=== PATIENT | female | born 1955 | race Native Hawaiian/Other Pacific Islander ===

== ENCOUNTER 2024-07-25 14:06 | Emergency (ER) | payer BC, MEDICARE, SELFPAY ==
[2024-07-25 14:17] VITALS: BP 145/81; PULSE 83; RESP 18; TEMP 36.9; O2SAT 95; BMI 24.6
--- NOTE | 2024-07-25 14:39 | XR_ITS ---
Examination: CT abdomen and pelvis without contrast. Coronal 3-D reconstructions. Sagittal 2-D reconstructions. Date and time of exam:July 25, 2024 1507 hrs. Indications: Onset right-sided flank pain beginning 3 days ago CTDI: vol (mGy): 6.67 DLP: (mGycm): 330 Technique: Axial images of the abdomen have been obtained, 3 mm slice thickness Intravenous contrast material has not been administered. Low dose protocols were performed. One or more of the following dose reduction techniques were used; automated exposure control, adjustment of the mA and/or KV according to patient size, use of iterative reconstruction technique. Findings: No focal liver or splenic lesions Contracted gallbladder No pancreatic or adrenal mass No renal or ureteral calculi, no hydronephrosis Aortic calcification no aneurysmal dilatation No bowel obstruction No pericecal inflammatory change No diverticulitis No bladder mass or bladder calculi, mild thickening of the urinary bladder wall Absent uterus No pelvic mass Advanced disc narrowing L5-S1 Impression: No renal or ureteral calculi, no hydronephrosis Impression: Mild thickening of the urinary bladder wall, consider cystitis
--- NOTE | 2024-07-25 14:39 | PD.EDRME ---
Rapid Medical Screening Exam RME Arrival date/time: 07/25/24 14:06 68-year-old female presents to the emergency department complaint of right flank pain Chief Complaint: Abdominal Pain Vital signs: Vital Signs Temperature 98.5 F 07/25/24 14:17 Pulse Rate 83 07/25/24 14:17 Respiratory Rate 18 07/25/24 14:17 Blood Pressure 145/81 H 07/25/24 14:17 Pulse Oximetry (%) 95 07/25/24 14:17 Oxygen Delivery Method Room Air 07/25/24 14:17
[2024-07-25] MEDS: CYCLObenzaPRINE 5 MG TABLET 10 MG PO (14:51)
[2024-07-25] MEDS: KETOROLAC INJ 30 MG/ML VIAL IM (14:52)
[2024-07-25 15:12] LABS: Basophils # (Auto) 0.1 Thou/mm3 (0.0-0.2); Basophils % (Auto) 1 % (0-2.5); Eosinophils # (Auto) 0.1 Thou/mm3 (0.0-0.5); Eosinophils % (Auto) 2 % (0-10); Hematocrit 40.1 % (36.0-46.0); Hemoglobin 13.1 g/dL (12.0-16.0); Immature Granulocytes % (Auto) 0 % (0-0); Immature Granulocytes Auto 0.01 Thou/mm3 (0.00-0.00); Lymphocytes # (Auto) 2.4 Thou/mm3 (1.0-4.8); Lymphocytes % (Auto) 36 % (10-50); Mean Corpuscular HGB Conc 32.7 g/dl (31.0-37.0); Mean Corpuscular Hemoglobin 29.6 pg (25.0-35.0); Mean Corpuscular Volume 91 fL (80-100); Monocytes # (Auto) 0.6 Thou/mm3 (0.0-0.8); Monocytes % (Auto) 9 % (0-12); Neutrophils # (Auto) 3.6 Thou/mm3 (1.8-7.7); Neutrophils % (Auto) 53 % (37-80); Nucleated Red Blood Cell % 0 /100 WBC (0); Platelet Count 282 Thou/mm3 (140-440); RDW Standard Deviation 44.8 fL (36.4-46.3); Red Blood Count 4.42 Miln/mm3 (4.00-5.20); White Blood Count 6.8 Thou/mm3 (3.6-11.0)
[2024-07-25 15:37] LABS: Collection Type, Urine Clean Catch; Squamous Epithelial Cell,Urine 0 /hpf (0-5)
[2024-07-25 15:38] LABS: Alanine Aminotransferase 100 U/L (10-49); Albumin, Serum 4.8 gm/dL (3.4-4.8); Albumin/Globulin Ratio 1.5 (1.2-2.2); Alkaline Phosphatase 134 U/L (46-116); Anion Gap 9 (7-16); Aspartate Amino Transferase 90 U/L (0-34); BUN/Creatinine Ratio 16 Ratio (12-20); Bilirubin,Total 0.6 mg/dL (0.3-1.2); Blood Urea Nitrogen 13 mg/dL (9-23); Calcium 9.9 mg/dL (8.3-10.6); Calcium (Corrected) 9.9 mg/dL (8.5-10.1); Chloride 102 mMol/L (98-107); Creatinine (Component) 0.8 mg/dL (0.6-1.3); Estimated Creatinine Clearance 50.3 mL/min (>60); Globulin 3.2 gm/dL (2.3-3.5); Glucose 84 mg/dL (74-106); Lipase 39 U/L (12-53); Osmolality,Calculated 278 (275-295); Potassium 4.1 mMol/L (3.4-5.1); Sodium 140 mMol/L (136-145); eGFR > 60 See Note
[2024-07-25 16:07] LABS: Bilirubin,Urine Negative (Negative); Blood,Urine Trace (Negative); Clarity,Urine Clear (Clear/Hazy); Color,Urine Lt-Yellow (Lt Yel-Yel); Culture Indicated,Urine Not Indicated; Glucose, Urine Negative (Negative); Ketones,Urine Negative (Negative); Leukocyte Esterase,Urine Negative (Negative); Nitrite,Urine Negative (Negative); PH,Urine 6.5 (5.0-7.0); Protein,Urine Negative (Neg - Trace); RBC,Urine 3 /hpf (0-3); Specific Gravity,Urine 1.013 (1.001-1.035); Urobilinogen,Urine Negative mg/dL (0.0-1.0); WBC,Urine < 1 /hpf (0-5)
--- NOTE | 2024-07-25 16:09 | PRELIM_ITS ---
CT scan of the abdomen and pelvis without intravenous contrast (axial sections with sagittal and blanche nal reformats) July 25, 2024 1507 hours Clinical History: Right flank pain.No prior study is avai lable for comparison.Findings:The lung bases are clear.There is no evidence of renal/ureteric calculu s or hydroureteronephrosis. The liver, gallbladder, pancreas, spleen, kidneys and adrenals are unrem arkable on this noncontrast study.No evidence of bowel obstruction. The appendix is not clearly visua lized. There is no mesenteric or retroperitoneal adenopathy.A moderate amount of fecal material is pr esent in the colon and rectum. The abdominal aorta demonstrates atheromatous calcification without ev idence of aneurysm. The urinary bladder is incompletely distended at the time of the examination and appears mildly thick walled. There is no free fluid or free air.Degenerative changes are identified i n the spine. Impression:No evidence of renal/ureteric calculus or hydroureteronephrosis. Incompletely distended urinary bladder with mildly thick walled. In the appropriate clinical setting, mild cystit is cannot be entirely excluded. Recommend clinical and laboratory correlation. Report Electronically Signed By: Sangeeta Christina 07/25/2024 4:08:39 PM [EST]
--- NOTE | 2024-07-25 16:55 | EDNOTE_ITS ---
ED Abdominal Pain RME/HPI General Chief Complaint: Abdominal Pain Stated complaint: RIGHT FLANK PAIN FOR 3 DAYS Arrival date/time: 07/25/24 14:06 RME / HPI RME / HPI narrative: 07/25/24 14:06 68-year-old female presents to the emergency department complaint of right flank pain DR. MOORE MAIN ED EVALUATION 68 year old female with history of kidney stones, hypertension, hyperlipidemia, GERD presents to the ED for evaluation of right flank pain beginning 4 days ago. Described as aching in sensation and rating as moderate-severe. Accompanied by constipation, last bowel movement yesterday. States she has taken Tylenol and used Diclofenac patched for the pain without improvement. Denies fevers, chills, chest pain, cough, shortness of breath, vomiting, or urinary symptoms. Related Data Home Medications ?Medication ?Instructions ?Recorded ?Confirmed ascorbic acid (vitamin C) 1,000 mg 1 g PO DAILY 10/21/18 09/28/23 tablet (Vitamin C) calcium 600 mg (as 1 cap PO DAILY 10/21/18 09/28/23 carbonate)-vitamin D3 10 mcg (400 unit) capsule (Calcium with Vitamin D3) atorvastatin 20 mg tablet 20 mg PO QDAY 09/25/22 09/28/23 omeprazole 40 mg capsule,delayed 40 mg PO QDAY 09/25/22 09/28/23 release propranolol 20 mg tablet 20 mg PO QDAY 09/25/22 09/28/23 estradiol 0.01% (0.1 mg/gram) 2 g vaginal DIRECTED 03/27/23 09/28/23 vaginal cream (Estrace) Previous Rx's ?Medication ?Instructions ?Recorded polyethylene glycol 3350 17 17 g PO QDAY PRN constipation #510 08/24/22 gram/dose oral powder grams nitrofurantoin 100 mg PO BID 7 days #14 caps 07/25/24 monohydrate/macrocrystals 100 mg capsule (Macrobid) Allergies Allergy/AdvReac Type Severity Reaction Status Date / Time No Known Allergies Allergy Verified 07/25/24 14:08 Review of Systems Review of Systems Narrative Review of Systems: GEN: No fever, no chills, no weight loss EYES: No discharge, no visual changes, no pain HEENT: No ear pain, no congestion, no sore throat PULM: No shortness of breath, no cough, no congestion CV: No chest pain, no dyspnea on exertion, no palpitations GI: No nausea, no vomiting, no diarrhea, +pain, no constipation : No frequency, no urgency and no dysuria MUSC/SKEL No joint pain, no back pain SKIN: No rash PSYCH: No hallucinations, no depression HEME/LYMPH: No easy bleeding or bruising tendencies NEURO: No weakness, no headache Past Medical History Past Medical History NEUROLOGIC: Positive Neurological Disorders (chiari malformation) CARDIAC: Positive Rheumatic Fever GASTROINTESTINAL: Positive Apple's Esophagus, Ulcerative Colitis, Irritable Bowel and Hiatal Hernia Social History SMOKING STATUS: Never smoker SUBSTANCE USE: does not use ED Exam Narrative Physical exam: GENERAL APPEARANCE: Well hydrated, well nourished, in no acute distress. VITALS: All vitals were reviewed and the pulse ox is 95% on room air which is normal according to my interpretation. HEENT: Normocephalic, atramatic, EOMI, EACs are patent. There is no bulge or retraction. Throat without erythema or exudate. Moist oromucosa. No jaundice NECK: Supple, no JVD or bruits. CARDIOVASCULAR: Heart regular without S3-S4 or murmur. No rubs or gallops. LUNGS/CHEST: Clear to auscultation bilaterally. No rales, rhonchi, or wheezing. Normal inspection. ABDOMEN: Soft, minimal discomfort mid right upper abdomen and right flank no rebound no guarding, with normal bowel sounds. No pulsatile masses. No incarcerated hernia. EXTREMITIES: Normal inspection and palpation. No edema, clubbing, or cyanosis. Intact CSM SKIN: Warm and dry without rashes. Normal inspection. MUSCULOSKELETAL: Normal inspection. No gross deformity, full ROM all extremities NEURO: Alert and oriented x3. Cranial nerves II through XII grossly intact. There are no other motor or sensory deficits noted. PSYCHIATRIC: Normal mood and affect. No psychosis. Course Quality Measures none Orders Category Date Time Status CT abdomen pelvis wo con Stat Exams 07/25/24 14:39 Taken CBC Stat Lab 07/25/24 14:56 Completed Comprehensive Metabolic Panel Stat Lab 07/25/24 14:56 Completed Lipase Stat Lab 07/25/24 14:56 Completed UA, C/S IF [Urinalysis, C/S if Indicated] Stat Lab 07/25/24 15:30 Completed CYCLObenzaPRINE [Flexeril] Med 07/25/24 14:39 Discontinued 10 mg PO X1 ONE Ketorolac Inj [Toradol Inj] Med 07/25/24 14:39 Discontinued 30 mg IM X1 ONE Vital Signs Vital signs: Vital Signs Temperature 98.5 F 07/25/24 14:17 Pulse Rate 83 07/25/24 14:17 Respiratory Rate 18 07/25/24 14:17 Blood Pressure 145/81 H 07/25/24 14:17 Pulse Oximetry (%) 95 07/25/24 14:17 Oxygen Delivery Method Room Air 07/25/24 14:17 Abdominal Pain MDM MDM Narrative MDM Narrative:: I, Anni Spencer, am scribing for and in the presence of Dr. Moore. CBC is negative. CMP is negative. Lipase is negative. She has chronically mildly elevated transaminases. Total bilirubin is normal. UA is normal. CT abdomen and pelvic was reviewed by me and interpreted by me: Normal liver. Normal gallbladder. Normal pancreas. Normal kidneys. No hydronephrosis. Minimum stool buildup. No free fluid. No free air. No bowel obstruction. She does have thickened bladder wall may be consistent with cystitis. There is no surgical abdomen at this time. I gave her a copy of the CT report to follow-up with PMD. Advised that if she continues to have more pain she should come back for recheck and further care. In the meantime I am going to put on some antibiotic for the cystitis. As far as her history of constipation, she said that her doctor already gave her medication for that Patient data External records reviewed:: [facility] previous records (I reviewed ED visit on 02/21/2024) Clinical information provided by:: patient Social determinants that could affect healthcare access:: none Patient has the following chronic illnesses:: kidney stones, hypertension, hyperlipidemia, GERD How is presenting disease/condition affected by chronic disease/condition?: exacerbated by Evaluation data The following diagnostics were reviewed and interpreted by me:: lab results and radiology exam(s) Lab and/or radiology exams considered but not ordered:: None Interpretation Summary: Ordering Physician: Date of Service: Procedure(s): Accession Number(s): cc: ~ CT scan of the abdomen and pelvis without intravenous contrast (axial sections with sagittal and coronal reformats) July 25, 2024 1507 hours Clinical History: Right flank pain. No prior study is available for comparison. Findings: The lung bases are clear. There is no evidence of renal/ureteric calculus or hydroureteronephrosis. The liver, gallbladder, pancreas, spleen, kidneys and adrenals are unremarkable on this noncontrast study. No evidence of bowel obstruction. The appendix is not clearly visualized. There is no mesenteric or retroperitoneal adenopathy. A moderate amount of fecal material is present in the colon and rectum. The abdominal aorta demonstrates atheromatous calcification without evidence of aneurysm. The urinary bladder is incompletely distended at the time of the examination and appears mildly thick walled. There is no free fluid or free air. Degenerative changes are identified in the spine. Impression: No evidence of renal/ureteric calculus or hydroureteronephrosis. Incompletely distended urinary bladder with mildly thick walled. In the appropriate clinical setting, mild cystitis cannot be entirely excluded. Recommend clinical and laboratory correlation. Report Electronically Signed By: Sangeeta Christina 07/25/2024 4:08:39 PM [EST] Dictated By: Signed By: Medications / Prescriptions Medications or Prescriptions considered but not ordered:: None Medication administrations:: Medication Administration History Discontinued Medications Cyclobenzaprine HCl (Cyclobenzaprine 5 Mg Tablet) 10 mg PO X1 ONE Stop: 07/25/24 14:40 Last Admin: 07/25/24 14:51 Dose: 10 mg Documented By: MYRON Ketorolac Tromethamine (Ketorolac Inj 30 Mg/Ml Vial) 30 mg IM X1 ONE Stop: 07/25/24 14:40 Last Admin: 07/25/24 14:52 Dose: 30 mg Documented By: MYRON See above Consultations Consultation(s) initiated? (list below): No Diagnosis Differential diagnosis abdominal pain: abdominal pain, calculus of kidney, constipation, diverticulitis and other (Cholelithiasis ) Most likely diagnosis given after review of the tests above:: Abdominal pain Cystitis Chronically elevated transaminase Admission Indicated Admission indicated?: not indicated Admission Request Was there a request for admission?: No Disposition Plan Disposition Plan: Discharge Discharge Attestation Discharge Attestation: The patient and all family members were given an opportunity to ask questions and understood the discharge instructions. Discharge instructions specifically effects, indications for sooner follow up or return to the emergency department, and the expected course of current diagnosis. Patient condition: Stable Discharge Plan Plan Patient Disposition: HOME (Self Care) Disposition Comment: Stable to go home Prescriptions/Referrals Prescriptions/Med Rec: New nitrofurantoin monohyd/m-cryst [Macrobid] 100 mg capsule 100 mg PO BID 7 Days Qty: 14 0RF Rx Instructions: must administer with a meal/food No Action atorvastatin 20 mg tablet 20 mg PO QDAY propranolol 20 mg tablet 20 mg PO QDAY omeprazole 40 mg capsule,delayed release(DR/EC) 40 mg PO QDAY estradiol [Estrace] 0.01 % (0.1 mg/gram) cream 2 g vaginal DIRECTED Patient Comments: Twice a week ascorbic acid (vitamin C) [Vitamin C] 1,000 mg Tablet 1 g PO DAILY calcium carbonate-vitamin D3 [Calcium 600 with Vitamin D3] 600 mg(1,500mg) - 400 unit Capsule 1 cap PO DAILY polyethylene glycol 3350 17 gram/dose powder 17 g PO QDAY MDD 17 gr PRN (Reason: constipation) Qty: 510 0RF Referrals: Lora Green MD [Primary Care Provider] - In 1 week Problem List Clinical Impression: Abdominal pain, Cystitis Patient/Caregiver Discharge Instructions Education Materials: Abdominal Pain, ED CYSTITIS Female Adult Additional Instructions: Liquid diet for 24 hours. Medication as prescribed for bladder infection. Follow-up with your doctor in 3 days. Show your doctor copy of the CT report that I gave you. Return the nearest emergency department including this 1 if condition worsens or if new symptoms develop especially fever. Print Language: Welsh Stand Alone Forms: Hollie Award Info., Patient Portal Info Letter
== END 2024-07-25 17:37 | disposition home or self-care (01) ==
PROVIDERS: Nurse Practitioner Primary Care; Emergency Provider Emergency Medicine; PCP Family Medicine
DX: N30.90 Cystitis, unspecified without hematuria (principal); K21.9 Gastro-esophageal reflux disease without esophagitis; E78.5 Hyperlipidemia, unspecified; I10 Essential (primary) hypertension
CPT/HCPCS: 36415; 74176; 80053; 81001; 83690; 85025; 96372; 99284; J1885; A9270

== ENCOUNTER 2024-09-04 17:15 | Emergency (ER) | payer MEDICARE, SELFPAY ==
[2024-09-04 17:16] VITALS: BMI 24.6
[2024-09-04 17:44] VITALS: BP 148/83; PULSE 77; RESP 20; TEMP 37.2; O2SAT 97
--- NOTE | 2024-09-04 17:46 | XR_ITS ---
Examination: PA lateral chest 2 views TECHNIQUE: Upright PA lateral chest 2 views Exam date and time: September 04, 2024 1758 hours INDICATIONS: Shortness of the coughing beginning 3 days ago. FINDINGS: Early bibasilar pneumonia. Normal heart size The osseous structures are intact IMPRESSION: Early bibasilar pneumonia
--- NOTE | 2024-09-04 17:46 | PD.EDRME ---
Rapid Medical Screening Exam RME Arrival date/time: 09/04/24 17:15 68-year-old female currently on antibiotics presents to the emergency department complains of cough, congestion, wheezing Chief Complaint: Asthma Time Seen by Provider: 09/04/24 17:40 Vital signs: Vital Signs Temperature 98.9 F 09/04/24 17:44 Pulse Rate 77 09/04/24 17:44 Respiratory Rate 20 09/04/24 17:44 Blood Pressure 148/83 H 09/04/24 17:44 Pulse Oximetry (%) 97 09/04/24 17:44 Oxygen Delivery Method Room Air 09/04/24 17:44
[2024-09-04 18:16] VITALS: PULSE 79; RESP 20; O2SAT 98
[2024-09-04] MEDS: ALBUTEROL/IPRATROPIUM (Duoneb) RT SOL 3 ML NEBU INH (18:16)
--- NOTE | 2024-09-04 19:55 | EDNOTE_ITS ---
Upper Respiratory Inf. RME/HPI General Chief Complaint: Asthma Stated Complaint: WHEEZING FOR 4 DAYS Time Seen by Provider: 09/04/24 17:40 Source: patient Arrival date/time: 09/04/24 17:15 68-year-old female presents emergency department complaining of cough congestion and wheezing that is been ongoing for 5 days. Patient reports recently is on amoxicillin but is requesting change in antibiotic patient reports azithromycin usually works well for her. Patient reports has been on amoxicillin for 4 days with no improvement. Mode of arrival: ambulatory Limitations: no limitations RME / HPI RME / HPI Narrative: 09/04/24 17:15 68-year-old female currently on antibiotics presents to the emergency department complains of cough, congestion, wheezing Related Data Home Medications ?Medication ?Instructions ?Recorded ?Confirmed ascorbic acid (vitamin C) 1,000 mg 1 g PO DAILY 09/28/23 tablet (Vitamin C) calcium 600 mg (as 1 cap PO DAILY 10/21/1809/04 carbonate)-vitamin D3 10 mcg (400 unit) capsule (Calcium with Vitamin D3) atorvastatin 20 mg tablet 20 mg PO QDAY 09/25/2209/28 omeprazole 40 mg capsule,delayed 40 mg PO QDAY 3 09/28/23 release propranolol 20 mg tablet 20 mg PO QDAY 09/25/2209/28 estradiol 0.01% (0.1 mg/gram) 2 g vaginal DIRECTED 03/27/23 09/28/23 vaginal cream (Estrace) Previous Rx's ?Medication ?Instructions ?Recorded polyethylene glycol 3350 17 17 g PO QDAY PRN constipat ion #510 08/24/22 gram/dose oral powder grams azithromycin 250 mg tablet See Rx Instructions PO .COM PLEX #6 09/04/24 tabs Allergies Allergy/AdvReac Type Severity Reaction Status Date / Time No Known Allergies Allergy Verified 09/04/24 17:15 Review of Systems Review of Systems Systems Reviewed: All systems reviewed, normal except as documented Constitutional Constitutional: Reports system reviewed and no additional complaints, except as documented, Denies body ache(s), Denies chills and Denies fever(s) Eyes Eyes: Reports system reviewed and no additional complaints, except as documented and Denies change in vision ENT Ears, Nose, Mouth, and Throat: Reports system reviewed and no additional complaints, except as documented, Denies disequilibrium, Denies dizziness, Denies sore throat and Denies vertigo Cardiovascular Cardiovascular: Reports system reviewed and no additional complaints, except as documented, Denies chest pain and Denies dyspnea Respiratory Respiratory: Reports system reviewed and no additional complaints, except as documented, Reports chest congestion, Reports cough, Denies dyspnea and Reports wheezing Gastrointestinal Gastrointestinal: Reports system reviewed and no additional complaints, except as documented, Denies abdominal pain, Denies nausea and Denies vomiting Musculoskeletal Musculoskeletal: Reports system reviewed and no additional complaints, except as documented, Denies abnormal gait and Denies arthralgias Integumentary/Breasts Skin/Breast: Reports system reviewed and no additional complaints, except as documented, Denies erythema, Denies rash and Denies wounds Neurologic Neurologic: Reports system reviewed and no additional complaints, except as documented, Denies abnormal gait, Denies disequilibrium, Denies dizziness and Denies vertigo Allergic/Immunologic Allergic/Immunologic: Reports wheezing Past Medical History Past Medical History NEUROLOGIC: Positive Neurological Disorders (chiari malformation) CARDIAC: Positive Rheumatic Fever; Negative Cardiac Disorders or Congestive Heart Failure RESPIRATORY: Negative Chronic Obstructive Pulmonary Disease (COPD) or Asthma GASTROINTESTINAL: Positive Apple's Esophagus, Ulcerative Colitis, Irritable Bowel and Hiatal Hernia GENITOURINARY: Negative Renal Disease ENDOCRINE: Negative Diabetes Mellitus Type 1 or Diabetes Mellitus Type 2 HEMATOLOGIC: Negative Sickle Cell Disease Social History SMOKING STATUS: Never smoker SUBSTANCE USE: does not use ED Exam General Limitations: Present no limitations General appearance: Present alert and in no apparent distress Head Head exam: Present atraumatic Eye Eye exam: Present normal appearance, PERRL and EOMI ENT ENT exam: Present normal exam, normal oropharynx and mucous membranes moist Neck Neck exam: Present normal inspection, full ROM and trachea midline Chest Chest inspection: Present normal inspection and symmetric chest wall rise Respiratory Respiratory exam: Present normal lung sounds bilaterally Cardiovascular Cardiovascular exam: Present regular rate, normal rhythm and normal heart sounds Abdominal Exam Abdominal exam: Present soft and normal bowel sounds Extremities Exam Extremities exam: Present normal inspection and full ROM Back Exam Back exam: Present normal inspection and full ROM Neurological Exam Neurological exam: Present alert, oriented X3 and CN II-XII intact Psychiatric Psychiatric exam: Present normal affect and normal mood Skin Skin exam: Present warm, dry, intact and normal color Course Quality Measures none Orders Category Date Time Status Bedside Influenza A&B Antigen Test NOW Care 09/04/24 17:46 Completed XR chest 2V Stat Exams 09/04/24 17:46 Completed Albuterol/Ipratr Rt Allyn [Duoneb Rt Allyn] Med 09/04/24 17:46 Discontinued 3 ml INH X1 ONE Vital Signs Vital signs: Vital Signs Temperature 98.9 F 09/04/24 17:44 Pulse Rate 77 09/04/24 17:44 Respiratory Rate 20 09/04/24 17:44 Blood Pressure 148/83 H 09/04/24 17:44 Pulse Oximetry (%) 97 09/04/24 17:44 Oxygen Delivery Method Room Air 09/04/24 17:44 97% room air within normal limits Upper Respiratory Infection MDM Narrative MDM Narrative:: 68-year-old female presents emergency department complaining of cough congestion and wheezing that is been ongoing for 5 days. Patient reports recently is on amoxicillin but is requesting change in antibiotic patient reports azithromycin usually works well for her. Patient reports has been on amoxicillin for 4 days with no improvement. At time of exam patient had already received albuterol treatment and no adventitious lung sounds on auscultation. Patient not appear to be in any respiratory distress. Patient speaking in full sentences. Patient still does complain about occasional cough. Chest x-ray impression early bibasilar pneumonia. Patient instructed to stop taking amoxicillin and started on azithromycin as patient requested. Instructed patient to follow-up with primary care provider return to emergency department for any worsening symptoms or as needed. Patient data External records reviewed:: [facility] previous records Clinical information provided by:: patient Social determinants that could affect healthcare access:: none Patient has the following chronic illnesses:: See chart How is presenting disease/condition affected by chronic disease/condition?: uneffected by Evaluation data The following diagnostics were reviewed and interpreted by me:: lab results and radiology exam(s) Lab and/or radiology exams considered but not ordered:: Ordered Interpretation Summary: Interpreted by me Medications / Prescriptions Medications or Prescriptions considered but not ordered:: Ordered Medication administrations:: Medication Administration History Discontinued Medications Albuterol/Ipratropium (Albuterol/Ipratropium (Duoneb) Rt Allyn 3 Ml Nebu) 3 ml INH X1 ONE Stop: 09/04/24 17:47 Last Admin: 09/04/24 18:16 Dose: 3 ml Documented By: NE Given Consultations Consultation(s) initiated? (list below): No Diagnosis Upper Respiratory Differential Diagnosis: upper respiratory infection, sinus itis, viral infection, bronchitis, influenza and pharyngitis Most likely diagnosis given after review of the tests above:: Pneumonia Admission Indicated Admission indicated?: not indicated Admission Request Was there a request for admission?: No Disposition Plan Disposition Plan: Discharge Discharge Attestation Discharge Attestation: The patient and all family members were given an opportunity to ask questions and understood the discharge instructions. Discharge instructions specifically effects, indications for sooner follow up or return to the emergency department, and the expected course of current diagnosis. Patient condition: Stable Discharge Plan Plan Patient Disposition: HOME (Self Care) Disposition Comment: Stable Prescriptions/Referrals Prescriptions/Med Rec: New azithromycin 250 mg tablet See Rx Instructions PO .COMPLEX Qty: 6 0RF Rx Instructions: For 250 mg dose pack: take 500 mg today (day 1), then 250 mg for 4 days (days 2-5) No Action atorvastatin 20 mg tablet 20 mg PO QDAY propranolol 20 mg tablet 20 mg PO QDAY omeprazole 40 mg capsule,delayed release(DR/EC) 40 mg PO QDAY estradiol [Estrace] 0.01 % (0.1 mg/gram) cream 2 g vaginal DIRECTED Patient Comments: Twice a week ascorbic acid (vitamin C) [Vitamin C] 1,000 mg Tablet 1 g PO DAILY calcium carbonate-vitamin D3 [Calcium 600 with Vitamin D3] 600 mg(1,500mg) - 400 unit Capsule 1 cap PO DAILY polyethylene glycol 3350 17 gram/dose powder 17 g PO QDAY MDD 17 gr PRN (Reason: constipation) Qty: 510 0RF Problem List Clinical Impression: Pneumonia Patient/Caregiver Discharge Instructions Discharge Activity: activity as tolerated Education Materials: ED Pneumonia (Adult) Additional Instructions: Stop taking amoxicillin. Take antibiotic as prescribed. Follow-up with primary care provider in 2 to 3 days. Return to the emergency department for any worsening symptoms or as needed. Print Language: Ghanaian Stand Alone Forms: Hollie Award Info., Patient Portal Info Letter PA/BRANCH ACCOUNT MANAGER Supervising Physician PA/BRANCH ACCOUNT MANAGER Supervising Physician: Dr. Sullivan
== END 2024-09-04 20:25 | disposition home or self-care (01) ==
PROVIDERS: Emergency Provider Emergency Medicine
DX: J18.9 Pneumonia, unspecified organism (principal)
CPT/HCPCS: 71046; 87400; 94640; 99283; A9270

== ENCOUNTER → 2024-09-09 | Outpatient (CLI) | payer MEDICARE, SELFPAY ==
--- NOTE | 2024-09-09 15:31 | XR_ITS ---
Examination: PA lateral chest 2 views TECHNIQUE: Upright PA lateral chest 2 views Exam date and time: September 09, 2024 1541 hours INDICATIONS: Early bibasilar pneumonia on chest film September 04, 2024 FINDINGS: No current pneumonia Accentuation basilar bronchovascular markings Normal heart size IMPRESSION: Mild bibasilar bronchitis No current pneumonia
== END | disposition home or self-care (01) ==
PROVIDERS: PCP Family Medicine; Referring Provider Family Medicine; Visit Provider Family Medicine
DX: J40 Bronchitis, not specified as acute or chronic (principal)
CPT/HCPCS: 71046

== ENCOUNTER → 2024-09-20 | Outpatient (BNVA) | payer MEDICARE, BC, SELFPAY | END | disposition home or self-care (01) | PROVIDERS: PCP Family Medicine; Referring Provider Family Medicine; Visit Provider Urology | DX: R31.29 Other microscopic hematuria (principal); G89.4 Chronic pain syndrome; Z86.018 Personal history of other benign neoplasm; N28.1 Cyst of kidney, acquired; R39.198 Other difficulties with micturition | CPT/HCPCS: 76857; 81003; 99212; G0463 ==

== ENCOUNTER 2024-12-30 10:16 | Outpatient (AMB) | payer MEDICARE, BC, SELFPAY ==
[2024-12-30 10:34] VITALS: BP 136/71; PULSE 78; RESP 16; TEMP 35.2; O2SAT 94; BMI 23.6
--- NOTE | 2024-12-30 10:34 | PD.ORTHCLVIS ---
Vital signs 12/30/24 10:34 Height 1.5 m Height Method Stated Weight 53.297 kg Weight Measurement Method Standing Scale BMI 23.6 BP 136/71 H Blood Pressure Source Automatic Cuff Blood Pressure Location Right Upper Arm Position Sitting Respiration 16 Pulse 78 Pulse Source Monitor Temp 95.3 F L Temp Source Temporal Artery Scan Pulse Oximetry (%) 94 L Oxygen Delivery Method Room Air Med/Allergies Allergies & Medications Allergies No Known Allergies Allergy (Verified 12/30/24 10:35) Medication Reconciliation ascorbic acid (vitamin C) 1,000 mg tablet (Vitamin C) 1 g PO DAILY 10/21/18 [History Confirmed 12/30/24] calcium 600 mg (as carbonate)-vitamin D3 10 mcg (400 unit) capsule (Calcium with Vitamin D3) 1 cap PO DAILY 10/21/18 [History Confirmed 12/30/24] polyethylene glycol 3350 17 gram/dose oral powder 17 g PO QDAY PRN constipation #510 grams 08/24/22 [Rx Confirmed 12/30/24] atorvastatin 20 mg tablet 20 mg PO QDAY 09/25/22 [History Confirmed 12/30/24] omeprazole 40 mg capsule,delayed release 40 mg PO QDAY 09/25/22 [History Confirmed 12/30/24] propranolol 20 mg tablet 20 mg PO QDAY 09/25/22 [History Confirmed 12/30/24] estradiol 0.01% (0.1 mg/gram) vaginal cream (Estrace) 2 g vaginal DIRECTED 03/27/23 [History Confirmed 12/30/24] azithromycin 250 mg tablet See Rx Instructions PO .COMPLEX #6 tabs 09/04/24 [Rx Confirmed 12/30/24] meloxicam 7.5 mg tablet 7.5 mg PO QDAY #45 tabs 12/30/24 [Rx] Exam Exam Patient is in no acute distress and is cooperative with the examination today. Breathing is nonlabored. Patient has a normal mood and affect. Bilateral extremities were evaluated and demonstrates sensation intact to light touch. Palpable pedal pulses are present. No significant edema is present. Bilateral hips were examined. The patient has no pain with log roll of the hips. Internal rotation to 30 degrees and external rotation to 30 degrees is painless. Negative FADIR. Right knee was examined today. The right knee is in reasonable alignment. Range of motion from 0-120 degrees. Knee is stable to varus and valgus as well as AP translation with <5mm. Patient has a negative McMurrays. There is no pain with patellofemoral compression and no crepitus noted. The knee is nontender to palpation. Left knee was examined today. The left knee is in varus alignment. Range of motion from 0-115 degrees. Knee is stable to varus and valgus as well as AP translation with <5mm. Patient has a negative McMurrays. There is no pain with patellofemoral compression and no crepitus noted. The knee is tender to palpation medially. Left knee x-rays demonstrate Moderate joint space narrowing medially Assessment and Plan Problem List (1) Arthritis of left knee: Status: Acute Plan: Patient is a pleasant 69-year-old female with left knee pain and a left knee arthritis. We discussed treatment options. She would like to continue with conservative treatment for now. We have sent her prescription for meloxicam. We discussed that we can give her an injection should the pain get worse. She is not looking for surgery at this time and we discussed that this is reasonable. Advanced Care Planning Discussion Advance care planning discussed with:: patient Office Procedures GNS Level of Care Nursing/Assessment Patient Status: Established Patient Nursing Assessment/Reassesment: Medication Reconciliation, Update PMH in EMR and Vital Signs Coordination of Care: Complex Care and Chronic Disease 1-5, Education Complex Pt/Fam, Consent,records obtained, informed consent, Results/Orders obtained and Staff clarify orders Established Patient Charge Established Patient Point Assignment: 95 Established Patient Point Charge: EP Level 3 (80-115) MA Intake Visit Data Collection New Patient or Established: Established Patient (seen at [facility] within 3 years) Reason for Visit:: LEFT KNEE PAIN- SECOND OPINION Seen by Clinical Staff ONLY (RN/MA): No 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: No PCP or OBGYN visit in last 3 months: Yes Hx Now: No Do You Feel Safe at Home: Yes Authorities Contacted: N/A Questionairres Past Medical History Past Medical History Have you ever been diagnosed with any of the following: Cardiology Problems Congestive Heart Failure: No Rheumatic Fever: Yes Respiratory Problems Chronic Obstructive Pulmonary Disease (COPD): No Asthma: No Smoking: No Smoking Cessation Counseling: No Smoking Exposure: No Tobacco Use: No Stomache/Intestinal Problems Apple's Esophagus: Yes Ulcerative Colitis: Yes Irritable Bowel: Yes Hiatal Hernia: Yes Genital/Urinary Problems Renal Disease: No Endocrine Problems Diabetes Mellitus Type 1: No Diabetes Mellitus Type 2: No Blood Problems Sickle Cell Disease: No Subjective Visit Visit for: new patient and knee ( LEFT KNEE PAIN ) Immunization / Flu Flu Vaccine in the Last 12 Months: No Flu Vaccine Exclusion Criteria: Refused by Patient History of Present Illness Chief complaint: Left knee pain Patient is a pleasant 69-year-old female with left knee pain and left medial knee pain has been ongoing for several years. She reports pain when she walks. She has tried Red light therapy and no injections or anti-inflammatories. She reports the pain is not terrible and she still functioning well Personal History Red flag PMH: none Pain Pain level (0-10): 2 Pain duration: SINCE 1989 Pain location: anterior Pain quality: sharp and burning Pain timing: night and increases with activity Associated signs & symptoms: none Ambulatory data Ambulatory device: none Walking distance (minutes): 1 Treatments Number of previous injections: 0 Number of Physical Therapy sessions: 0 Improvement with NSAIDS: n/a Review of Systems Review of Systems: All systems negative unless otherwise noted in HPI.
== END 2024-12-30 10:46 | disposition home or self-care (01) ==
LOC: HODSRG 10:16
PROVIDERS: PCP Family Medicine; Referring Provider Family Medicine; Supervising Provider Orthopaedic Surgery Adult Reconstructive Orthopaedic Surgery; Visit Provider Orthopaedic Surgery Adult Reconstructive Orthopaedic Surgery
DX: M17.12 Unilateral primary osteoarthritis, left knee (principal); M25.562 Pain in left knee
CPT/HCPCS: 99213; G0463

== ENCOUNTER → 2025-01-16 | Outpatient (BNVA) | payer MEDICARE, BC, SELFPAY | END | disposition home or self-care (01) | PROVIDERS: PCP Family Medicine; Referring Provider Family Medicine; Visit Provider Urology | DX: N28.1 Cyst of kidney, acquired (principal) | CPT/HCPCS: 81003; 99212; G0463 ==

== ENCOUNTER 2025-05-08 20:06 | Emergency (ER) | payer MEDICARE, BC, SELFPAY ==
[2025-05-08 20:07] VITALS: BMI 24.6
--- NOTE | 2025-05-08 20:15 | PD.EDDIZZY ---
ED Dizzyness RME/HPI General Chief Complaint: Dizziness Stated Complaint: BP HIGH 170/100 DIZZY Time Seen by Provider: 05/08/25 20:41 Arrival date/time: 05/08/25 20:06 RME / HPI RME / HPI Narrative: See [facility] for Dr. Lacy's HPI Documentation. Related Data Home Medications ?Medication ?Instructions ?Recorded ?Confirmed ascorbic acid (vitamin C) 1,000 mg 1 g PO DAILY 10/21/18 01/16/25 tablet (Vitamin C) calcium 600 mg (as 1 cap PO DAILY 10/21/18 01/16/25 carbonate)-vitamin D3 10 mcg (400 unit) capsule (Calcium with Vitamin D3) atorvastatin 20 mg tablet 20 mg PO QDAY 09/25/22 01/16/25 omeprazole 40 mg capsule,delayed 40 mg PO QDAY 09/25/22 01/16/25 release propranolol 20 mg tablet 20 mg PO QDAY 09/25/22 01/16/25 estradiol 0.01% (0.1 mg/gram) 2 g vaginal DIRECTED 03/27/23 01/16/25 vaginal cream (Estrace) Previous Rx's ?Medication ?Instructions ?Recorded polyethylene glycol 3350 17 17 g PO QDAY PRN constipation #510 08/24/22 gram/dose oral powder grams azithromycin 250 mg tablet See Rx Instructions PO .COMPLEX #6 09/04/24 tabs meloxicam 7.5 mg tablet 7.5 mg PO QDAY #45 tabs 12/30/24 meclizine 25 mg tablet 25 mg PO BID PRN dizziness #20 tabs 05/08/25 ondansetron 4 mg disintegrating 4 mg PO TID PRN nausea and 05/08/25 tablet vomiting 30 days #10 tabs scopolamine base 1 mg over 3 days 1 mg topical .q72 hours PRN 05/08/25 transdermal patch (Transderm-Scop) dizziness or vertigo #4 ea Allergies Allergy/AdvReac Type Severity Reaction Status Date / Time No Known Allergies Allergy Verified 01/16/25 14:37 Review of Systems Review of Systems Systems Reviewed: All systems reviewed, normal except as documented Past Medical History Past Medical History NEUROLOGIC: Positive Neurological Disorders (chiari malformation) CARDIAC: Positive Rheumatic Fever GASTROINTESTINAL: Positive Apple's Esophagus, Ulcerative Colitis, Irritable Bowel and Hiatal Hernia ED Exam Narrative Physical exam: See MDM for Dr. Lacy's Physical Exam Documentation. Course Quality Measures none Orders Category Date Time Status Bedside COVID-19 Antigen Test NOW Care 05/08/25 20:41 Completed Bedside Influenza A&B Antigen Test NOW Care 05/08/25 20:41 Completed EKG (ED ONLY) *Do not use* NOW Care 05/08/25 20:43 Completed Saline [Insert IV] NOW Care 05/08/25 20:[address] head/brain wo con Stat Exams 05/08/25 20:43 Completed EKG (ED Only) Stat Exams 05/08/25 20:43 Draft XR chest 1V portable Stat Exams 05/08/25 20:43 Completed BNP [B-Type Natriuretic Peptide] Stat Lab 05/08/25 21:06 Completed Bilirubin,Direct Stat Lab 05/08/25 21:06 Completed CBC Stat Lab 05/08/25 21:06 Completed CMP [Comprehensive Metabolic Panel] Stat Lab 05/08/25 21:06 Completed Magnesium Stat Lab 05/08/25 21:06 Completed TSH [Thyroid Stimulating Hormone] Stat Lab 05/08/25 21:06 Completed Troponin I Stat Lab 05/08/25 21:06 Completed UA, C/S IF [Urinalysis, C/S if Indicated] Stat Lab 05/08/25 21:43 Completed Meclizine HCl [Antivert] Med 05/08/25 20:42 Discontinued 25 mg PO X1 ONE Ondansetron Inj [Zofran Inj] Med 05/08/25 20:42 Discontinued 4 mg IVP X1 ONE Scopolamine [Transderm-Scop Patch] Med 05/08/25 20:42 Discontinued 1 mg TOP X1 ONE Sodium Chloride 0.9% 1000 ml [Ns] 1,000 ml Med 05/08/25 20:42 Discontinued IV 999 mls/hr Vital Signs Vital signs: Vital Signs Temperature 98.3 F 05/08/25 20:39 Pulse Rate 76 05/08/25 20:39 Respiratory Rate 18 05/08/25 20:39 Blood Pressure 166/72 H 05/08/25 20:39 Pulse Oximetry (%) 97 05/08/25 20:39 Oxygen Delivery Method Room Air 10/06/25 20:39 Dizziness MDM Narrative MDM Narrative:: This section includes all my notes and documentations, including HPI, PE, and ED course. Mukesh Lacy MD HPI: 69 female presents with Hx of Chiari Malformation presents with dizziness for the past 12 hours. Reports spinning sensation and moving sensation. Feels like being seasick. No headache. No speech or vision impairment. No loss of power in arms or legs. No other complaints. ROS: All negative except as documented in HPI. Physical Exam: General: Alert and oriented. No acute distress. Eyes: Conjunctivae and lids clear. EOMI. PERRL. ENT: No nasal congestion. Pharynx normal. Tympanic membrane normal bilaterally. Neck: Supple. No carotid bruit. No JVD. Heart: RRR. Lungs: No respiratory distress. Good air movement. No rhonchi, wheezing, rales. Abdomen: Soft and nontender. Legs: No clubbing, cyanosis, edema. Skin: Warm and dry. Neuro: Alert and oriented X 3. Cranial Nerves II-XII grossly intact. No peripheral motor deficits. I reviewed all diagnostic test results: My interpretation of the EKG is: Sinus rhythm (70 bpm) with nonspecific ST-T changes. My interpretation of the chest x-ray is: NAD. My review of the Head/Brain CT report is: NAD. Blood tests and urine tests unremarkable. Covid/Influenza: Negative. At this point, diagnoses include: Vertigo Treatment here included: IVF Antivert 25 mg Zofran 4 mg Transderm-Scopolamine 1 mg Significant improvement noted. Recommended outpatient care. Based on my best medical judgment, made decision no further evaluation or treatment indicated at this time. Patient understands and agrees to the discharge instructions customized and printed, see below. Discharge instructions from Dr. Lacy: ? After extensive evaluation, there is no life-threatening condition.? Such as stroke or brain tumor or heart attack. -- Your severe symptoms are due to vertigo.? This is an inner ear problem that makes you feel like you are drunk or seasick.? See attached handout. -- Use scopolamine patch and/or meclizine for your severe symptoms. -- And Zofran for nausea/vomiting.? And increase oral fluid to prevent dehydration.? Maintain clear urine.? If dark or yellow, increase oral fluid. -- And do everything very slowly.? Including moving your head.? And when you sit up or stand up, wait a minute before you progress.? -- See your private doctor on 05/10/2025 for recheck and further care. Ask to review all test results and official radiology reports, to make sure you receive all necessary follow-ups and monitoring. If needed, ask to help you get more care not available here in the ER.? Such as MRI imaging of your brain, physical therapy, table tilt test, and referrals to see specialists (such as neurologist and ENT specialist). -- Seek immediate medical care with worsening or with any concerns. Mukesh Lacy MD Patient data External records reviewed:: [facility] previous records (Reviewed prior ED records from 09/04/24. Patient was seen for Pneumonia.) Clinical information provided by:: patient Social determinants that could affect healthcare access:: none Patient has the following chronic illnesses:: Rheumatic Fever, Apple's Esophagus, Ulcerative Colitis, Irritable Bowel and Hiatal Hernia How is presenting disease/condition affected by chronic disease/condition?: exacerbated by Evaluation data The following diagnostics were reviewed and interpreted by me:: lab results, radiology exam(s) and EKG tracing(s) (My interpretation of the EKG is: Sinus rhythm (70 bpm) with nonspecific ST-T changes. Mukesh Lacy MD) Lab and/or radiology exams considered but not ordered:: None Interpretation Summary: I reviewed all diagnostic test results: My interpretation of the EKG is: Sinus rhythm (70 bpm) with nonspecific ST-T changes. My interpretation of the chest x-ray is: NAD. My review of the Head/Brain CT report is: NAD. Blood tests and urine tests unremarkable. Covid/Influenza: Negative. Medications / Prescriptions Medications or Prescriptions considered but not ordered:: None Medication administrations:: Medication Administration History Discontinued Medications Sodium Chloride (Ns) 1,000 mls @ 999 mls/hr IV .Q1H1M ONE Stop: 05/08/25 21:42 Last Infusion: 05/08/25 23:30 Dose: Infused Documented By: Admin: 05/08/25 22:00 Dose: 999 mls/hr Documented By: JONO Meclizine HCl (Meclizine Hcl 25 Mg Tablet) 25 mg PO X1 ONE Stop: 05/08/25 20:43 Last Admin: 05/08/25 22:05 Dose: Not Given Documented By: JONO Non-Admin Reason: Patient Refused Ondansetron HCl (Ondansetron Inj 2 Mg/Ml Inj 2 Ml) 4 mg IVP X1 ONE; Protocol Stop: 05/08/25 20:43 Last Admin: 05/08/25 22:01 Dose: 4 mg Documented By: JONO Scopolamine (Scopolamine 1 Mg Tdsy) 1 mg TOP X1 ONE Stop: 05/08/25 20:43 Last Admin: 05/08/25 22:03 Dose: Not Given Documented By: JONO Non-Admin Reason: Patient Refused IVF Antivert 25 mg Zofran 4 mg Transderm-Scopolamine 1 mg Consultations Consultation(s) initiated? (list below): No Diagnosis Dizziness Differential Diagnosis: benign paroxysmal positional vertigo, orthostatic hypotension, vertebral basilar insufficiency, cerebrovascular accident, acute vestibular neuronitis and transient cerebral ischemia Most likely diagnosis given after review of the tests above:: Vertigo Admission Indicated Admission indicated?: not indicated Explain why admission is indicated or not indicated:: With significant improvement and no condition needing emergent intervention, there was no indication for admission. Admission Request Was there a request for admission?: No Disposition Plan Disposition Plan: Discharge Discharge Attestation Discharge Attestation: The patient and all family members were given an opportunity to ask questions and understood the discharge instructions. Discharge instructions specifically effects, indications for sooner follow up or return to the emergency department, and the expected course of current diagnosis. Patient condition: Stable Discharge Plan Plan Patient Disposition: HOME (Self Care) Prescriptions/Referrals Prescriptions/Med Rec: New meclizine 25 mg tablet 25 mg PO BID PRN (Reason: dizziness) Qty: 20 0RF scopolamine base [Transderm-Scop] 1 mg over 3 days patch 3 day 1 mg topical .q72 hours PRN (Reason: dizziness or vertigo) Qty: 4 0RF ondansetron 4 mg tablet,disintegrating 4 mg PO TID PRN (Reason: nausea and vomiting) 30 Days Qty: 10 0RF No Action atorvastatin 20 mg tablet 20 mg PO QDAY propranolol 20 mg tablet 20 mg PO QDAY omeprazole 40 mg capsule,delayed release(DR/EC) 40 mg PO QDAY estradiol [Estrace] 0.01 % (0.1 mg/gram) cream 2 g vaginal DIRECTED Patient Comments: Twice a week meloxicam 7.5 mg tablet 7.5 mg PO QDAY Qty: 45 3RF ascorbic acid (vitamin C) [Vitamin C] 1,000 mg Tablet 1 g PO DAILY calcium carbonate-vitamin D3 [Calcium 600 with Vitamin D3] 600 mg(1,500mg) -400 unit Capsule 1 cap PO DAILY azithromycin 250 mg tablet See Rx Instructions PO .COMPLEX Qty: 6 0RF Rx Instructions: For 250 mg dose pack: take 500 mg today (day 1), then 250 mg for 4 days (days 2-5) polyethylene glycol 3350 17 gram/dose powder 17 g PO QDAY MDD 17 gr PRN (Reason: constipation) Qty: 510 0RF Referrals: Shankar Green MD [Primary Care Provider, [facility]] - In 1 week Problem List Clinical Impression: Vertigo Patient/Caregiver Discharge Instructions Discharge Activity: activity as tolerated Education Materials: ED Vertigo, Unspecified Additional Instructions: Discharge instructions from Dr. Lacy: ? After extensive evaluation, there is no life-threatening condition.? Such as stroke or brain tumor or heart attack. -- Your severe symptoms are due to vertigo.? This is an inner ear problem that makes you feel like you are drunk or seasick.? See attached handout. -- Use scopolamine patch and/or meclizine for your severe symptoms. -- And Zofran for nausea/vomiting.? And increase oral fluid to prevent dehydration.? Maintain clear urine.? If dark or yellow, increase oral fluid. -- And do everything very slowly.? Including moving your head.? And when you sit up or stand up, wait a minute before you progress.? -- See your private doctor on 05/10/2025 for recheck and further care. Ask to review all test results and official radiology reports, to make sure you receive all necessary follow-ups and monitoring. If needed, ask to help you get more care not available here in the ER.? Such as MRI imaging of your brain, physical therapy, table tilt test, and referrals to see specialists (such as neurologist and ENT specialist). -- Seek immediate medical care with worsening or with any concerns. Print Language: Romanian Stand Alone Forms: Hollie Award Info., Patient Portal Info Letter
[2025-05-08 20:39] VITALS: BP 166/72; PULSE 76; RESP 18; TEMP 36.8; O2SAT 97
--- NOTE | 2025-05-08 20:43 | XR_ITS ---
Examination: CT brain head without contrast. 2-D sagittal coronal reconstructions Date and time of exam:May 08 thousand 25, 0912 hrs. Indications: Dizziness episodes beginning 1600 hrs. Today, history CVA 1989 Comparison: March 04, 2017 CTDI: vol (mGy):46.8 DLP: (mGycm):910 Technique: Multiple CT axial sections of the brain have been obtained, 5 mm slice thickness. Contrast has not been administered. 2-D sagittal, coronal reconstructions have been obtained Low dose protocols were performed. One or more of the following dose reduction techniques were used; automated exposure control, adjustment of the mA and/or KV according to patient size, use of iterative reconstruction technique. Findings: No significant ventricular enlargement. Intra-axial or extra-axial hemorrhage density is not seen. No mass effect or midline shift Basal cisterns are not remarkable. Fourth ventricle is midline. Occipital craniotomy Impression: Negative for acute hemorrhage, mass effect or midline shift
--- NOTE | 2025-05-08 20:43 | XR_ITS ---
Examination: PA chest single view Technique: Upright PA chest single view Date and time: May [id number] hrs. Indications: Shortness of breath dizziness beginning today. Findings: Normal heart size The lungs are clear. The osseous structures are intact and moderately osteopenic Impression: No active disease
--- NOTE | 2025-05-08 20:43 | EKG_ITS ---
[facility] Test Date: 2025-05-08 Pat Name: RICKIE LATHAM Department: Room: - Gender: Female Layout Inspector: : 1955 Requested By: Mukesh Raymond Order Number: [id number] Reading MD: Mukesh Raymond Measurements Intervals Cement Rate: 70 P: 42 FL: 162 QRS: -29 QRSD: 121 T: 84 QT: 420 QTc: 453 Interpretive Statements SINUS RHYTHM POSSIBLE ANTERIOR MYOCARDIAL INFARCTION , OF INDETERMINATE AGE [30 ms Q WAVE IN V3/V4, OR R < 0.2 mV IN V4] Compared to ECG 02/21/2024 00:39:56 No significant changes /store/S0/[id number].pdf
[2025-05-08 21:12] LABS: Basophils # (Auto) 0.1 Thou/mm3 (0.0-0.2); Basophils % (Auto) 1 % (0-2.5); Eosinophils # (Auto) 0.2 Thou/mm3 (0.0-0.5); Eosinophils % (Auto) 2 % (0-10); Hematocrit 41.9 % (36.0-46.0); Hemoglobin 13.9 g/dL (12.0-16.0); Immature Granulocytes Auto 0.03 Thou/mm3 (0.00-0.00); Lymphocytes # (Auto) 2.7 Thou/mm3 (1.0-4.8); Lymphocytes % (Auto) 28 % (10-50); Mean Corpuscular HGB Conc 33.2 g/dl (31.0-37.0); Mean Corpuscular Hemoglobin 30.2 pg (25.0-35.0); Mean Corpuscular Volume 91 fL (80-100); Monocytes # (Auto) 0.5 Thou/mm3 (0.0-0.8); Monocytes % (Auto) 6 % (0-12); Neutrophils # (Auto) 6.1 Thou/mm3 (1.8-7.7); Neutrophils % (Auto) 63 % (37-80); Nucleated Red Blood Cell # 0.00 Thou/mm3 (0.00-0.00); Nucleated Red Blood Cell % 0 /100 WBC (0); Platelet Count 303 Thou/mm3 (140-440); RDW Standard Deviation 42.6 fL (36.4-46.3); Red Blood Count 4.61 Miln/mm3 (4.00-5.20); White Blood Count 9.5 Thou/mm3 (3.6-11.0)
[2025-05-08 21:31] LABS: B-Type Natriuretic Peptide 25 pg/mL (0-100)
[2025-05-08 21:37] LABS: Alanine Aminotransferase 31 U/L (10-49); Albumin, Serum 4.5 gm/dL (3.4-4.8); Albumin/Globulin Ratio 1.4 (1.2-2.2); Alkaline Phosphatase 136 U/L (46-116); Anion Gap 11 (7-16); Aspartate Amino Transferase 35 U/L (0-34); BUN/Creatinine Ratio 10 Ratio (12-20); Bilirubin,Direct < 0.1 mg/dL (0.0-0.3); Bilirubin,Total 0.4 mg/dL (0.3-1.2); Blood Urea Nitrogen 9 mg/dL (9-23); Calcium 9.8 mg/dL (8.3-10.6); Calcium (Corrected) 9.8 mg/dL (8.5-10.1); Carbon Dioxide 30.1 mMol/L (20.0-31.0); Chloride 103 mMol/L (98-107); Creatinine (Component) 0.9 mg/dL (0.6-1.3); Estimated Creatinine Clearance 44.1 mL/min (>60); Globulin 3.3 gm/dL (2.3-3.5); Glucose 110 mg/dL (74-106); Magnesium 1.7 mg/dL (1.6-2.6); Osmolality,Calculated 286 (275-295); Potassium 4.7 mMol/L (3.4-5.1); Sodium 144 mMol/L (136-145); Thyroid Stimulating Hormone 1.09 uIU/mL (0.55-4.78); Total Protein 7.8 gm/dL (5.7-8.2); Troponin I < 0.002 ng/mL (0.0-0.045); eGFR > 60 See Note
[2025-05-08] MEDS: SODIUM CHLORIDE 0.9% 1000 ML 1,000 ML 999 ML IV (22:00)
[2025-05-08] MEDS: ONDANSETRON INJ 2 MG/ML INJ 2 ML 4 MG IVP (22:01)
[2025-05-08 22:02] LABS: Collection Type, Urine Clean Catch; Squamous Epithelial Cell,Urine 0 /hpf (0-5)
[2025-05-08 22:09] LABS: Bilirubin,Urine Negative (Negative); Blood,Urine Trace (Negative); Clarity,Urine Clear (Clear/Hazy); Color,Urine Colorless (Lt Yel-Yel); Culture Indicated,Urine Not Indicated; Glucose, Urine Negative (Negative); Ketones,Urine Negative (Negative); Leukocyte Esterase,Urine Negative (Negative); Nitrite,Urine Negative (Negative); PH,Urine 7.0 (5.0-7.0); Protein,Urine Negative (Neg - Trace); RBC,Urine < 1 /hpf (0-3); Specific Gravity,Urine 1.003 (1.001-1.035); Urobilinogen,Urine Negative mg/dL (0.0-1.0); WBC,Urine < 1 /hpf (0-5)
== END 2025-05-08 23:54 | disposition home or self-care (01) ==
PROVIDERS: Emergency Provider Emergency Medicine; PCP Family Medicine
DX: R42 Dizziness and giddiness (principal); R06.02 Shortness of breath; Z86.73 Personal history of transient ischemic attack (TIA), and cerebral infarction without residual deficits
CPT/HCPCS: 36415; 70450; 71045; 80053; 81001; 82248; 83735; 83880; 84443; 84484; 85025; 87400; 87811; 93005; 96361; 96374; 99284; J2405; J7030; A9270

== ENCOUNTER 2025-07-01 20:47 | Emergency (ER) | payer OTHER, SELFPAY ==
[2025-07-01 20:48] VITALS: BMI 24.6
[2025-07-01 21:03] VITALS: BP 161/82; PULSE 81; RESP 18; TEMP 37.1; O2SAT 96
--- NOTE | 2025-07-01 21:08 | XR_ITS ---
EXAMINATION: Thoracic spine 2 views TECHNIQUE: AP lateral thoracic spine 2 views Date and time: July 01, 2025, 2154 hours INDICATIONS: Upper back pain beginning 6 hours ago. FINDINGS: Thoracic dextroscoliosis 12 degrees No thoracic fracture Mild to moderate diffuse thoracic degenerative disc disease IMPRESSION: Mild to moderate diffuse thoracic degenerative disc disease
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
== END 2025-07-01 23:41 | disposition home or self-care (01) ==
PROVIDERS: Emergency Provider Emergency Medicine; PCP Family Medicine
DX: S23.3XXA Sprain of ligaments of thoracic spine, initial encounter (principal); S13.4XXA Sprain of ligaments of cervical spine, initial encounter; S09.90XA Unspecified injury of head, initial encounter; M51.34 Other intervertebral disc degeneration, thoracic region; V89.2XXA Person injured in unspecified motor-vehicle accident, traffic, initial encounter
CPT/HCPCS: 70450; 72040; 72072; 99282

== ENCOUNTER 2025-07-12 08:31 | Emergency (ER) | payer MEDICARE, BC, SELFPAY ==
--- NOTE | 2025-07-12 | XR_ITS ---
Examination: MRI brain without intravenous contrast. Date and time of exam: July 12, 2025, 1340 hours, comparison May 24, 2024 INDICATIONS: Stroke history 20 years ago, onset 730 this morning dizziness hypertension Technique: Multiple axial and sagittal images of the brain obtained. Siemens high-resolution 1.5 Armida short bore scanners utilized. Sagittal sections, T1-weighted, TR 500, TE 14, are performed. Axial sections proton-density and T2-weighted have been obtained. Inversion recovery axial images, TR 9, 260, TE 111, TI 2500. Diffusion weighted images, axial sections, TR 4800, TE 128, B value 1000 Axial sections, ADC map, TR 4800, TE 128 Findings: Enlargement of the sella turcica is not present. The optic chiasm and infundibular are not remarkable. Prepontine and interpeduncular cisterns are not enlarged. There is no localized enlargement of the medulla or tammy. Fourth ventricle and cerebellar tonsils appear normal in position. No subacute area of hemorrhage density is seen. Mass in the cerebellopontine angle region is not evident. Globes symmetrical. Orbital musculature including medial lateral rectus muscles do not exhibit abnormality. Diffusion-weighted images demonstrate no focus of restricted diffusion. Increased white matter signal moderate Mass effect upon the ventricular system is not identified. Impression: Negative for acute hemorrhage, mass effect or midline shift No acute infarct Moderate chronic microvascular white matter change
[2025-07-12 08:44] VITALS: BP 163/89; PULSE 72; RESP 16; TEMP 36.8; O2SAT 99; BMI 24.4
--- NOTE | 2025-07-12 09:01 | PD.EDRME ---
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 Denies speech changes, vision changes, or new numbness/weakness. I briefly performed a screening evaluation to initiate work-up and expedite care. Complete history, physical exam, and plan of care is deferred to the provider in the main ED. Exam: Head: Normocephalic, atraumatic. Respiratory: Normal effort. No respiratory distress or accessory muscle use. Skin: Warm, dry, normal color. Psych: Pleasant. Normal affect. Cooperative. Clinical Impression: Rule out CVA vs other causes of vertigo
--- NOTE | 2025-07-12 09:06 | PD.EDDIZZY ---
ED Dizzyness RME/HPI General Chief Complaint: Dizziness Stated Complaint: Dizzy, nausea BP 179/112 Time Seen by Provider: 07/12/25 09:07 Arrival date/time: 07/12/25 08:31 RME / HPI RME / HPI Narrative: 69 year old female with history of CVA 20+ years ago with no residual deficits, hypertension on Losartan presents to the ED for evaluation of dizziness beginning at approximately 07:30 AM today. States she had woken up at her usual state of health and was reading a book while lying in bed when the dizziness began. States shortly after she got up and while walking to the restroom noted feeling unsteady on her feet. States she had checked her blood pressure during that time and was 179/112 and HR 82 which she says made me nervous . Patient states she did not take her Losartan last night due to being extremely tired though did take this morning. Patient additionally reports not sleeping well last night and not sure if that is contributing to her symptoms. No other associated symptoms reported. Denies fevers, chills, chest pain, cough, shortness of breath, abdominal pain, n/v/d, or urinary symptoms. Related Data Home Medications ?Medication ?Instructions ?Recorded ?Confirmed ascorbic acid (vitamin C) 1,000 mg 1 g PO DAILY 10/21/18 01/16/25 tablet (Vitamin C) calcium 600 mg (as 1 cap PO DAILY 10/21/18 01/16/25 carbonate)-vitamin D3 10 mcg (400 unit) capsule (Calcium with Vitamin D3) atorvastatin 20 mg tablet 20 mg PO QDAY 09/25/22 01/16/25 omeprazole 40 mg capsule,delayed 40 mg PO QDAY 09/25/22 01/16/25 release propranolol 20 mg tablet 20 mg PO QDAY 09/25/22 01/16/25 estradiol 0.01% (0.1 mg/gram) 2 g vaginal DIRECTED 03/27/23 01/16/25 vaginal cream (Estrace) Previous Rx's ?Medication ?Instructions ?Recorded polyethylene glycol 3350 17 17 g PO QDAY PRN constipation #510 08/24/22 gram/dose oral powder grams azithromycin 250 mg tablet See Rx Instructions PO .COMPLEX #6 09/04/24 tabs meloxicam 7.5 mg tablet 7.5 mg PO QDAY #45 tabs 12/30/24 meclizine 25 mg tablet 25 mg PO BID PRN dizziness #20 tabs 05/08/25 scopolamine base 1 mg over 3 days 1 mg topical .q72 hours PRN 05/08/25 transdermal patch (Transderm-Scop) dizziness or vertigo #4 ea baclofen 5 mg tablet 5 mg PO BID PRN muscle spasm #10 07/01/25 tabs meloxicam 7.5 mg tablet 7.5 mg PO QDAY PRN pain #10 tabs 07/01/25 meclizine 25 mg tablet 25 mg PO QID PRN dizziness #20 tabs 07/12/25 Allergies Allergy/AdvReac Type Severity Reaction Status Date / Time No Known Allergies Allergy Verified 07/12/25 08:37 Review of Systems Review of Systems Systems Reviewed: All systems reviewed, normal except as documented Past Medical History Past Medical History NEUROLOGIC: Positive Neurological Disorders (chiari malformation) CARDIAC: Positive Rheumatic Fever GASTROINTESTINAL: Positive Apple's Esophagus, Ulcerative Colitis, Irritable Bowel and Hiatal Hernia Social History SMOKING STATUS: Never smoker SUBSTANCE USE: does not use ED Exam Narrative Physical exam: Generally patient is alert and in no obvious distress, eyes pupils equal round reactive to light without vertical or bidirectional nystagmus, neck showed no bruits, heart regular rate and rhythm, lungs clear to auscultation equal bilaterally, abdomen soft bowel sounds present nondistended nontender Course Quality Measures Suspected type of Stroke: Unknown at this time Tenecteplase given: Reason(s) TPA not given: Stroke severity too mild (non-disabling) not given stroke Orders Category Date Time Status Bedside Blood Glucose NOW Care 07/12/25 09:08 Active Technical Operator NOW Care 07/12/25 09:08 Active Continuous Pulse Oximetry NOW Care 07/12/25 09:08 Completed EKG (ED ONLY) *Do not use* NOW Care 07/12/25 09:08 Completed In and Out Catheter NEEDED Care 07/12/25 09:08 Active Insert IV NOW Care 07/12/25 09:08 Active MRI Screening NOW Care 07/12/25 10:21 Active NIH Stroke Scale now Care 07/12/25 09:08 Active NPO NOW Care 07/12/25 09:08 Active Nurse Swallow Screen x1 Care 07/12/25 09:08 Active Consult to Neurology / Tele-Neurology Routine Cons 07/12/25 09:[address] angio stroke protocol Stat Exams 07/12/25 09:[address] stroke protocol Stat Exams 07/12/25 09:08 Completed EKG (ED Only) Stat Exams 07/12/25 09:08 Draft MR head/brain wo con Stat Exams 07/12/25 Completed XR chest 1V portable Stat Exams 07/12/25 09:08 Completed CBC Stat Lab 07/12/25 09:10 Completed Comprehensive Metabolic Panel Stat Lab 07/12/25 09:10 Completed Drug Screen,Urine Stat Lab 07/12/25 10:06 Completed HCG Titer if Positive Stat Lab 07/12/25 09:10 Completed Magnesium Stat Lab 07/12/25 09:10 Completed Partial Thromboplastin Time Stat Lab 07/12/25 09:10 Completed Prothrombin Time with INR Stat Lab 07/12/25 09:10 Completed Troponin I Stat Lab 07/12/25 09:10 Completed Urinalysis, C/S if Indicated Stat Lab 07/12/25 10:06 Completed Labetalol* IV [Trandate IV] Med 07/12/25 09:08 Active 10 mg IVP Q15M PRN Ondansetron Inj [Zofran Inj] Med 07/12/25 09:08 Active 4 mg IVP Q4HR PRN Oxygen Delivery NOW RT 07/12/25 09:08 Active Vital Signs Vital signs: Vital Signs Temperature 98.3 F 07/12/25 08:44 Pulse Rate 72 07/12/25 08:44 Respiratory Rate 16 07/12/25 08:44 Blood Pressure 163/89 H 07/12/25 08:44 Pulse Oximetry (%) 99 07/12/25 08:44 Oxygen Delivery Method Room Air 07/12/25 08:44 Pulse ox is 99% on room air which is adequate. Dizziness MDM Narrative MDM Narrative:: I, Anni Spencer, roro scribing for and in the presence of Dr. Lovett. Stroke alert was called. Head CT was negative. CT angiogram of head and neck showed no large vessel occlusion. I interpreted all labs. MRI of the brain showed no evidence of infarct or acute disease process. The stroke neurologist believes this to be vertigo. Last blood pressure was 155 or 89 here in the emergency room. Patient will be given meclizine to be taken as prescribed. Follow-up with her doctor. Continue current medications for her high blood pressure. Return to ER as needed or if condition worsens. EKG showed normal sinus rhythm at a rate of 80 without ischemic change or ectopy Patient data External records reviewed:: [facility] previous records Clinical information provided by:: patient Social determinants that could affect healthcare access:: none Patient has the following chronic illnesses:: CVA, HTN How is presenting disease/condition affected by chronic disease/condition?: exacerbated by Evaluation data The following diagnostics were reviewed and interpreted by me:: lab results, radiology exam(s) and EKG tracing(s) Lab and/or radiology exams considered but not ordered:: none Interpretation Summary: Ordering Physician: Segundo Lovett DO Date of Service: 07/12/25 Procedure(s): XR chest 1V portable Accession Number(s): [id number] cc: Rodolfo Huitron MD; Lora Trejo MD; Segundo Lovett DO~ EXAMINATION: AP chest single view TECHNIQUE: AP portable semiupright chest single view Date and time: July 12, 2025, 0942 hours INDICATIONS: Stroke alert today FINDINGS: Minor prominence left ventricle Minimal opacity right base laterally Prominent osteopenia Prominent osteopenia IMPRESSION: Minimal opacity right base laterally, consider mild pneumonia Dictated By: Rodolfo Huitron MD Signed By: <Electronically signed by Rodolfo Huitron MD in OV> 07/12/25 1007 Ordering Physician: Segundo Lovett DO Date of Service: 07/12/25 Procedure(s): CT stroke protocol Accession Number(s): [id number] cc: Rodolfo Ruano MD; eSgundo Lovett DO~ Examination: CT brain head without contrast. 2-D sagittal coronal reconstructions Date and time of exam: 07/12/2025 at 9:19 a.m. CTDI: vol (mGy): 47.4 DLP: (mGycm): 909 CLINICAL INDICATION: Stroke alert, patient had previous occipital bone resection for Arnold-Chiari malformation. Comparison is made with the previous CT head scan on 07/01/2025, also comparison with an MRI of the brain on 05/24/2024 Technique: Multiple CT axial sections of the brain have been obtained, 5 mm slice thickness. Contrast has not been administered. 2-D sagittal, coronal reconstructions have been obtained Low dose protocols were performed. One or more of the following dose reduction techniques were used; automated exposure control, adjustment of the mA and/or KV according to patient size, use of iterative reconstruction technique. Findings: There is asymmetric dilatation of the right lateral ventricle which displaces the septum pellucidum very minimally to the left side, 2.6 mm. However the third ventricle remains perfectly in the midline with no displacement. This appearance is stable and unchanged dating back to the MRI study on 05/24/2024. 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 There is also been resection of the posteroinferior occipital bone and treatment of Arnold-Chiari malformation, this finding is also stable and unchanged. The left sphenoid sinus is much larger than the right, the bony alberto of the left sphenoid sinus are markedly thickened, and it is completely opacified. These findings are chronic, they are also stable and unchanged dating back to the previous MRI study on 05/24/2024. There are no areas of abnormal density present anywhere in the stiles-white matter in the cerebrum cerebellum or brainstem. The extra-axial space appears normal. No abnormalities can be detected in involving any of the major intracerebral arteries sella turcica and pituitary gland appear normal. IMPRESSION: 1. no acute abnormalities are identified and there is no visible evidence of a stroke. 2. 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 Impression: Negative for acute hemorrhage, mass effect or midline shift Dictated By: Rodolfo Ruano MD Signed By: <Electronically signed by Rodolfo Ruano MD in OV> 07/12/25 0937 Ordering Physician: Segundo Lovett DO Date of Service: 07/12/25 Procedure(s): CT angio stroke protocol Accession Number(s): [id number] cc: Rodolfo Ruano MD; Lora Trejo MD; Segundo Lovett DO~ Examination: CTA carotids with intravenous contrast CTA brain, head with intravenous contrast. 2-D sagittal, coronal reconstructions. 3-D reconstructions. Exam date and time: 07/12/2025 at 9:38 a.m. CTDI: vol (mGy) 20.3 DLP: (mGycm) 414 CLINICAL HISTORY: Possible acute stroke Technique: Multiple CTA axial brain, head carotid images post intravenous contrast injection 70 cc, [id number]. 2-D sagittal, coronal reconstructions. 3-D reconstructions, 3-D post processing including vascular maximum intensity projection images. Low dose protocols were performed. One or more of the following dose reduction techniques were used; automated exposure control, adjustment of the mA and/or KV according to patient size, use of iterative reconstruction technique. Findings: There is excellent CT visualization of the arterial circulation in the patient's upper mediastinum, neck and intracranial region. On the right the origin of the right carotid artery off the innominate is normal, and the cervical portion of the right common carotid artery is entirely. At the bifurcation, there are 2 small calcifications at the origin of the right internal carotid artery, but there is absolutely no narrowing or irregularity at all the internal carotid artery and the right otherwise appears entirely normal as extends upwards into the base of the skull and through the cavernous sinus. The intracranial portion of the right internal carotid artery, and the appearance of the proximal and peripheral portions of the right middle and anterior cerebral arteries is entirely normal. On the left side, the findings are identical to the findings noted on the right, in that no abnormalities are identified anywhere, except for 2 tiny calcifications within the left internal carotid artery within the cavernous sinus. There is no narrowing of the artery in this region. Likewise the intracranial portion of the proximal and peripheral anterior and middle cerebral arteries are entirely normal In the posterior circulation, the right vertebral artery is normal throughout the cervical region and posterior fossa, communicating with the basilar artery in normal fashion. On the left, the entire left vertebral artery throughout the cervical region is markedly hypoplastic, representing a variation of normal. The hypoplastic left vertebral artery ends in the PICA which is a known variation of normal anatomy. The proximal and peripheral portions of the right and left posterior cerebral arteries appear normal. IMPRESSION: 1. No worrisome abnormalities are seen anywhere in the cervical or intracranial portion of the carotid or intracerebral arteries on either side, with the exception of 2 tiny s t the origin of the right internal carotid artery, and a few larger calcifications involving the left internal carotid artery in the cavernous sinus. No stenosis is identified 2. 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 This is a known congenital variation. No other abnormalities are identified. Dictated By: Rodolfo Ruano MD Signed By: <Electronically signed by Rodolfo Ruano MD in OV> 07/12/25 1018 Medications / Prescriptions Medications or Prescriptions considered but not ordered:: None Medication administrations:: Medication Administration History Labetalol HCl (Labetalol Inj 5 Mg/Ml Vial 4 Ml) 10 mg IVP Q15M PRN PRN Reason: hypertension Ondansetron HCl (Ondansetron Inj 2 Mg/Ml Inj 2 Ml) 4 mg IVP Q4HR PRN PRN Reason: NAUSEA OR VOMITING Stop: 08/11/25 09:07 See above Consultations Consultation(s) initiated? (list below): Yes Consultation #1 (Physician, Specialty, Details): I spoke with teleneurologist Dr. Simpson. States patient is not a TNK candidate and symptoms most consistent with vertigo. She recommends a brain MRI and if negative can be discharged home. Time: 10:20 Diagnosis Most likely diagnosis given after review of the tests above:: None Admission Indicated Admission indicated?: not indicated Admission Request Was there a request for admission?: No Disposition Plan Disposition Plan: Discharge Discharge Attestation Discharge Attestation: The patient and all family members were given an opportunity to ask questions and understood the discharge instructions. Discharge instructions specifically effects, indications for sooner follow up or return to the emergency department, and the expected course of current diagnosis. Patient condition: Stable Discharge Plan Plan Patient Disposition: HOME (Self Care) Prescriptions/Referrals Prescriptions/Med Rec: New meclizine 25 mg tablet 25 mg PO QID PRN (Reason: dizziness) Qty: 20 0RF No Action atorvastatin 20 mg tablet 20 mg PO QDAY propranolol 20 mg tablet 20 mg PO QDAY omeprazole 40 mg capsule,delayed release(DR/EC) 40 mg PO QDAY estradiol [Estrace] 0.01 % (0.1 mg/gram) cream 2 g vaginal DIRECTED Patient Comments: Twice a week meloxicam 7.5 mg tablet 7.5 mg PO QDAY Qty: 45 3RF ascorbic acid (vitamin C) [Vitamin C] 1,000 mg Tablet 1 g PO DAILY calcium carbonate-vitamin D3 [Calcium 600 with Vitamin D3] 600 mg(1,500mg) -400 unit Capsule 1 cap PO DAILY azithromycin 250 mg tablet See Rx Instructions PO .COMPLEX Qty: 6 0RF Rx Instructions: For 250 mg dose pack: take 500 mg today (day 1), then 250 mg for 4 days (days 2-5) meloxicam 7.5 mg tablet 7.5 mg PO QDAY PRN (Reason: pain) Qty: 10 0RF baclofen 5 mg tablet 5 mg PO BID PRN (Reason: muscle spasm) Qty: 10 0RF polyethylene glycol 3350 17 gram/dose powder 17 g PO QDAY MDD 17 gr PRN (Reason: constipation) Qty: 510 0RF meclizine 25 mg tablet 25 mg PO BID PRN (Reason: dizziness) Qty: 20 0RF scopolamine base [Transderm-Scop] 1 mg over 3 days patch 3 day 1 mg topical .q72 hours PRN (Reason: dizziness or vertigo) Qty: 4 0RF Referrals: Lora Green MD [Primary Care Provider, Family Practice] - In 1 week Problem List Clinical Impression: Vertigo Patient/Caregiver Discharge Instructions Print Language: Citizen Of [place] Stand Alone Forms: Hollie Award Info., Patient Portal Info Letter
--- NOTE | 2025-07-12 09:08 | EKG_ITS ---
[facility] Test Date: 2025-07-12 Pat Name: RICKIE LATHAM Department: Room: - Gender: Female Research Scholar: : 1955 Requested By: Segundo Dukes Order Number: [id number] Reading MD: Segundo Dukes Measurements Intervals [place] Rate: 67 P: 48 TX: 164 QRS: 3 QRSD: 131 T: 55 QT: 460 QTc: 487 Interpretive Statements SINUS RHYTHM POSSIBLE LEFT ATRIAL ENLARGEMENT [-0.1mV P-WAVE IN V1/V2] LEFT BUNDLE BRANCH BLOCK [120+ ms QRS DURATION, 80+ ms Q/S IN V1/V2, 85+ ms R IN I/aVL/V5/V6] Compared to ECG 05/08/2025 20:56:51 Left bundle-branch block now present Myocardial infarct finding no longer present /store/S0/[id number]/ecg/[id number].pdf
[2025-07-12 09:25] LABS: Basophils # (Auto) 0.1 Thou/mm3 (0.0-0.2); Basophils % (Auto) 1 % (0-2.5); Eosinophils # (Auto) 0.2 Thou/mm3 (0.0-0.5); Eosinophils % (Auto) 3 % (0-10); Hematocrit 40.9 % (36.0-46.0); Hemoglobin 13.2 g/dL (12.0-16.0); Immature Granulocytes Auto 0.02 Thou/mm3 (0.00-0.00); Lymphocytes # (Auto) 2.2 Thou/mm3 (1.0-4.8); Lymphocytes % (Auto) 32 % (10-50); Mean Corpuscular HGB Conc 32.3 g/dl (31.0-37.0); Mean Corpuscular Hemoglobin 29.7 pg (25.0-35.0); Mean Corpuscular Volume 92 fL (80-100); Monocytes # (Auto) 0.4 Thou/mm3 (0.0-0.8); Monocytes % (Auto) 6 % (0-12); Neutrophils # (Auto) 3.8 Thou/mm3 (1.8-7.7); Neutrophils % (Auto) 57 % (37-80); Nucleated Red Blood Cell # 0.00 Thou/mm3 (0.00-0.00); Nucleated Red Blood Cell % 0 /100 WBC (0); Platelet Count 325 Thou/mm3 (140-440); RDW Standard Deviation 45.1 fL (36.4-46.3); Red Blood Count 4.45 Miln/mm3 (4.00-5.20); White Blood Count 6.7 Thou/mm3 (3.6-11.0)
[2025-07-12 09:43] LABS: Alanine Aminotransferase 22 U/L (10-49); Albumin, Serum 4.9 gm/dL (3.4-4.8); Albumin/Globulin Ratio 1.4 (1.2-2.2); Alkaline Phosphatase 138 U/L (46-116); Anion Gap 10 (7-16); Aspartate Amino Transferase 26 U/L (0-34); BUN/Creatinine Ratio 10 Ratio (12-20); Bilirubin,Total 0.7 mg/dL (0.3-1.2); Blood Urea Nitrogen 8 mg/dL (9-23); Calcium 9.8 mg/dL (8.3-10.6); Calcium (Corrected) 9.8 mg/dL (8.5-10.1); Carbon Dioxide 30.1 mMol/L (20.0-31.0); Chloride 106 mMol/L (98-107); Creatinine (Component) 0.8 mg/dL (0.6-1.3); Estimated Creatinine Clearance 49.5 mL/min (>60); Globulin 3.4 gm/dL (2.3-3.5); Glucose 89 mg/dL (74-106); Magnesium 1.8 mg/dL (1.6-2.6); Osmolality,Calculated 287 (275-295); Potassium 3.1 mMol/L (3.4-5.1); Sodium 146 mMol/L (136-145); Total Protein 8.3 gm/dL (5.7-8.2); Troponin I < 0.020 ng/mL (0.0-0.045); eGFR > 60 See Note
[2025-07-12 09:47] LABS: HCG Titer if Positive Negative
[2025-07-12 10:04] LABS: INR 0.9 (0.9-1.3); Partial Thromboplastin Time 28.6 Seconds (22.0-36.0); Prothrombin Time 9.8 Seconds (9.0-12.2)
[2025-07-12 10:14] LABS: Collection Type, Urine Voided; RBC,Urine 0 /hpf (0-3); Squamous Epithelial Cell,Urine 0 /hpf (0-5)
--- NOTE | 2025-07-12 10:22 | ESCONSULT_ITS ---
Tele Neuro Consultation Consultation Date 07/12/25 Most Recent Vital Signs Last Vital Signs Temp 98.3 F 07/12/25 08:44 Pulse 72 07/12/25 08:44 Resp 16 07/12/25 08:44 BP 163/89 H 07/12/25 08:44 Pulse Ox 99 07/12/25 08:44 O2 Del Method Room Air 07/12/25 08:44 Laboratory-Coagulation Panel PT 9.8 Seconds (9.0-12.2) 07/12/25 09:10 INR 0.9 (0.9-1.3) 07/12/25 09:10 APTT 28.6 Seconds (22.0-36.0) 07/12/25 09:10 Consultation Narrative [facility] Tele[facility]rology Consult [facility] Patient Name:???Denice Yousif Date of :???1955 Identification Number:??? Date of Service:???07/12/2025 09:04:06 Diagnosis:?R42 - Dizziness/ Vertigo/ Giddiness Impression: ?69 yo female with history of HTN, HLD, prior stroke with residual Right hand weakness, ulcerative colitis with GI bleeding presenting to the ED with dizziness upon awakening this morning, TLKW ~0130 when she went to bed. NIHSS [address] Head negative for acute. CTA pending, will follow-up. Concern for peripheral vertigo, cannot completely r/o acute posterior circulation. Would obtain MRI Brain wo for further evaluation. Start ASA 81 mg. Symptomatic treatment of dizziness. Our recommendations are outlined below. Recommendations: ? Stroke/Telemetry Floor ? Neuro Checks (Q4) ? Bedside Swallow Eval ? DVT Prophylaxis ? IV Fluids, Normal Saline ? Head of Bed 30 Degrees ? Euglycemia and Avoid Hyperthermia (PRN Acetaminophen) ? Initiate or continue Aspirin 81 MG daily ? Antihypertensives PRN if Blood pressure is greater than 220/120 or there is a concern for End organ damage/contraindications for permissive HTN. If blood pressure is greater than 220/120 give labetalol PO or IV or Vasotec IV with a goal of 15% reduction in BP during the first 24 hours. Sign Out: ? Discussed with Emergency Department Provider Advanced Imaging:Advanced imaging has been ordered. Results pending. Metrics: Last Known Well: 07/12/2025 01:30:00 Arrival Time: 07/12/2025 08:31:00 Activation Time: 07/12/2025 09:04:06 Initial Response Time: 07/12/2025 09:05:43Symptoms: dizziness. Initial patient interaction: 07/12/2025 09:09:57 NIHSS Assessment Completed: 07/12/2025 09:22:09Patient is not a candidate for Thrombolytic. Thrombolytic Medical Decision: 07/12/2025 09:22:10Patient was not deemed c andidate for Thrombolytic because of following reasons: LKW outside 4.[address] Head: CT head unremarkable for acute infarction or hemorrhage per Radiology: Negative for acute changes, mass effect or midline shift. Primary Provider Notified of Diagnostic Impression and Management Plan on: 07/12/2025 10:18:44 History of Present Illness:Patient is a 69 year old Female. Patient was brought by private transportation with symptoms of dizziness. Patient reports that she woke up this morning with dizziness. She went to bed last night at 0130 feeling normal. Checked her blood pressure was very high so she came to the ED for further evaluation. She is having some associated gait instability without truncal ataxia. States she has Right hand weakness from a prior stroke. Does not take AP/AC due to concerns for GI bleeding related to her ulcerative colitis. ? Past Medical History: ?Hypertension ?Hyperlipidemia ?Stroke Other PMH:? ulcerative colitis with GI bleeding Medications: No Anticoagulant use? No Antiplatelet use Reviewed EMR for current medications Allergies:? Reviewed Social History: Drug Use: No Family History: There is no family history of premature cerebrovascular disease pertinent to this consultation ROS : 14 Points Review of Systems was performed and was negative except mentioned in HPI. Past Surgical History: There Is No Surgical History Contributory To Today?s Visit ? Examination: BP(163/89),?Pulse(72), 1A: Level of Consciousness - Alert; keenly responsive?+ 0 1B: Ask Month and Age - Both Questions Right?+ 0 1C: Blink Eyes & Squeeze Hands - Performs Both Tasks?+ 0 2: Test Horizontal Extraocular Movements - Normal?+ 0 3: Test Visual Tran - No Visual Loss?+ 0 4: Test Facial Palsy (Use Grimace if Obtunded) - Minor paralysis (flat nasolabial fold, smile asymmetry)?+ 1 5A: Test Left Arm Motor Drift - No Drift for 10 Seconds?+ 0 5B: Test Right Arm Motor Drift - No Drift for 10 Seconds?+ 0 6A: Test Left Leg Motor Drift - No Drift for 5 Seconds?+ 0 6B: Test Right Leg Motor Drift - No Drift for 5 Seconds?+ 0 7: Test Limb Ataxia (FNF/Heel-Asher) - No Ataxia?+ 0 8: Test Sensation - Normal; No sensory loss?+ 0 9: Test Language/Aphasia - Normal; No aphasia?+ 0 10: Test Dysarthria - Normal?+ 0 11: Test Extinction/Inattention - No abnormality?+ 0 NIHSS Score:?1 Pre-Morbid Modified Ian Scale: 2 Points = Slight disability; unable to carry out all previous activities, but able to look after own affairs without assistance Spoke with :?Dr. Lovett This consult was conducted in real time using interactive audio and video technology. Patient was informed of the technology being used for this visit and agreed to proceed. Patient located in hospital and provider located at home/office setting. Patient is being evaluated for possible acute neurologic impairment and high probability of imminent or life-threatening deterioration. I spent total of 30 minutes providing care to this patient, including time for face to face visit via telemedicine, review of medical records, imaging studies and discussion of findings with providers, the patient and/or family. Dr Kiko Simpson [facility] For Inpatient follow-up with [facility] physician please call [facility] at . As we are not an outpatient service for any post hospital discharge needs please contact the hospital for assistance. If you have any questions for the [facility] physicians or need to reconsult for clinical or diagnostic changes please contact us via [facility] at . Non-radiologist review of imaging performed to assist with emergent clinical decision-making. Remote physician workstations do not possess the same resolution, calibration, or diagnostic capabilities as hospital-based radiology reading stations, and formal radiologist read is necessary. Signature :Payton Simpson
[2025-07-12 10:27] LABS: Bacteria,Urine Rare; Bilirubin,Urine Negative (Negative); Blood,Urine Trace (Negative); Clarity,Urine Clear (Clear/Hazy); Color,Urine Colorless (Lt Yel-Yel); Culture Indicated,Urine Not Indicated; Glucose, Urine Negative (Negative); Ketones,Urine Negative (Negative); Leukocyte Esterase,Urine Negative (Negative); Nitrite,Urine Negative (Negative); PH,Urine 7.5 (5.0-7.0); Protein,Urine Negative (Neg - Trace); Specific Gravity,Urine 1.008 (1.001-1.035); Urobilinogen,Urine Negative mg/dL (0.0-1.0); WBC,Urine < 1 /hpf (0-5)
[2025-07-12 10:33] VITALS: BP 166/77; PULSE 77; RESP 23; TEMP 36.8; O2SAT 98
[2025-07-12 10:41] LABS: Amphetamine/Methamp Scrn,U Negative (Negative); Barbiturate Screen,Urine Negative (Negative); Benzodiazepines Screen,Urine Negative (Negative); Benzoylecgonine Screen, Ur Negative (Negative); Fentanyl Screen,Urine Negative (Negative); Opiate Screen,Urine Negative (Negative); THC Screen,Urine Negative (Negative)
[2025-07-12 14:00] VITALS: BP 175/82; PULSE 79; RESP 17; TEMP 36.7; O2SAT 98
--- NOTE | 2025-07-12 15:44 | PC.NURSE ---
Pt last set of BP vitals are elevated, provider made aware and instructed patient to take home meds for BP. Pt verbalized understanding.
== END 2025-07-12 15:53 | disposition home or self-care (01) ==
PROVIDERS: Emergency Provider Emergency Medicine; PCP Family Medicine
DX: R42 Dizziness and giddiness (principal); I44.7 Left bundle-branch block, unspecified; Q07.00 Arnold-Chiari syndrome without spina bifida or hydrocephalus; I10 Essential (primary) hypertension; E78.5 Hyperlipidemia, unspecified
CPT/HCPCS: 36415; 70450; 70496; 70498; 70551; 71045; 80053; 80307; 81001; 83735; 84484; 84703; 85025; 85610; 85730; 93005; 99284; A4649; Q9967

== ENCOUNTER → 2025-07-21 | Outpatient (BNVA) | payer MEDICARE, BC, SELFPAY | END | disposition home or self-care (01) | PROVIDERS: PCP Family Medicine; Referring Provider Family Medicine; Visit Provider Urology | DX: R31.0 Gross hematuria (principal); I10 Essential (primary) hypertension | CPT/HCPCS: 81003; 99212; G0463 ==